=== PATIENT | female | born 1995 | race African-American/Black ===

== ENCOUNTER 2019-08-26 13:48 | Emergency (ER) | payer BC ==
[~2019-08-26] VITALS: Ht 175.3 cm; Wt 107.5 kg
[2019-08-26 14:02] VITALS: BP 133/82; Ht 175.3 cm; Wt 107.5 kg
== END 2019-08-26 17:09 | disposition left against medical advice (07) ==
LOC: ED 13:48
DX: R07.89 Other chest pain (principal)